=== PATIENT | female | born 1980 | race Asian ===

== ENCOUNTER 2018-04-29 16:22 | Outpatient (CLI) | payer BC ==
[2018-04-29 17:33] LABS: BHCG - Serum Negative (NEGATIVE); Pregs Control Background? CLEAR/WHITE (CLR/WHITE); Pregs Control Bar Appear? YES (CONTROL BAR)
== END 2018-04-29 16:23 | disposition home or self-care (01) ==
LOC: LABBT 16:22
PROVIDERS: ATTEND Obstetrics & Gynecology
DX: Z01.812 Encounter for preprocedural laboratory examination (principal); N92.0 Excessive and frequent menstruation with regular cycle; N94.6 Dysmenorrhea, unspecified
CPT/HCPCS: 84703

== ENCOUNTER 2018-05-08 05:38 | Day surgery (SDC) | payer BC ==
[2018-04-29 16:42] VITALS: BMI 24.5
[2018-05-08] MEDS ORDERED: Fentanyl 100 MCG/2 ML VIAL ONE (06:22)
[2018-05-08] MEDS ORDERED: Midazolam HCl 2 mg/2 ml Vial ONE (06:44)
[2018-05-08] MEDS ORDERED: Calcium Chloride 1 GM/10 ML Abboject SYRINGE ONE (06:54)
[2018-05-08] MEDS ORDERED: Bupivacaine HCl 0.5%/Epinephrine 1:200,000/PF 30 ml Vial ONE (06:54)
[2018-05-08] MEDS ORDERED: Thrombin 5000 UNITS/5 ML VIAL ONE (06:54)
[2018-05-08] MEDS ORDERED: Promethazine HCl 25 MG/ML VIAL ONE (10:12)
[2018-05-08] MEDS ORDERED: Ondansetron ODT 4 MG TAB ONE (11:39)
--- NOTE | 2018-05-08 12:56 | OP ---
DATE OF PROCEDURE: 05/08/2018 SURGEON: Rubi Yang M.D. CONDITIONER TUMBLER OPERATOR: None. PREOPERATIVE DIAGNOSES: 1. A 37-year-old female with a painful and heavy bleeding. 2. Desires . POSTOPERATIVE DIAGNOSES: 1. A 37-year-old female with a painful and heavy bleeding. 2. Desires . 3. 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 4. Bilateral ovaries and tubes present. PROCEDURES PERFORMED: 1. Diagnostic hysteroscopy with shaving of endometrium with a True-Lana device. 2. Diagnostic laparoscopy with fulguration of endometriosis. 3. Chromotubation. 4. Removal of a left paratubal cyst. 5. Lysis of adhesions. 6. Enterolysis. 7. Plasmax infusion. SPECIMENS REMOVED: None. ESTIMATED BLOOD LOSS: Less than 5 mL. CLINICAL HISTORY: This patient is a 37-year-old female G0 who presented to my office with a co mplaint of irregular periods. The patient also had painful bleeding. She was concerned due to sever al years of trying for without conception even after using Clomid. The patient had evaluat ion by physical exam and ultrasonography and it was noted that she had a normal size uterus without a ny evidence of pathology and bilateral ovaries were seen. However, given the persistence of her irre gular menses and pelvic pain, the decision was made for surgical exploration. The risks, benefits, p ossible complications and alternatives were discussed and the patient was prepped for surgery. DETAILS OF PROCEDURE: The patient was taken to the operating room where general anesthesia was obtai ginny. She was laid in a supine position and her legs were placed in the Yellofin stirrups. She was p repped and draped in the usual sterile fashion. A lateral retractor was placed into the vagina and t he cervix was seen and the anterior lip of the cervix was grasped with a single tooth tenaculum. A F oley catheter was placed to drain clear urine. The cervix was then dilated gradually with the Hegar dilators to accommodate the slim hysteroscope. The hysteroscope was then assembled and after priming with sterile fluids, this was placed into the uterus and the uterus was distended with flow at the s terile fluid. The ostia on the patient's right side were the only visualized ostia. The left side w as not visible. There was a significant amount of debris in the uterus and the True-Lana device was used to shave off the excess material inside the uterus. Once this was completed, the device was rem arsh from the uterus and the uterus was allowed to drain that was noted to be hemostatic. The VCare device was then placed for manipulation and future plans for chromotubation. Attention was then turn ed to the abdomen. The legs were placed in the downward position and the abdomen was tented and an i ncision was made in the lower umbilical border and the direct view 5 mm trocar was placed into the ab domen. Once this port site was placed, the abdomen was insufflated with CO2 gas to maintain pressure s less than 15 mmHg. A survey of the pelvis noted no trauma to the underlying structures with visual ization of the pelvic structures. After the patient was placed in steep Trendelenburg noted that she had a unicornuate uterus with attached tube on the left side. The second trocar was placed 5 mm abo ve the mons pubis with a scalpel and then under direct visualization. A blunt probe was placed throu gh this trocar site for movement of the bowel to explore whether or not the patient had a right ovary and tube. Right ovary and tube were seen, but it was attached to the serosal base of the uterus wit hout evidence of connection or patency. The bowel on the patient's right side was also noted to encr oach pretty high up on the lateral side wall. This was released with just cold scissors with excelle nt hemostasis. Once the bowel was removed, we were better able to visualize the ovary and tube on th e right side. There was a focal point of endometriosis noted on the uterosacral on the patient's lef t side in two different places. The energy was connected to the scissors and these 2 sites were fulg urated under direct visualization. Once the sites were completed, the chromotubation was performed w ith initially no flow through to the patient's left side, but thereafter flow was achieved with signi ficant pressure only spilling from the left side. The right side did not fill at all. Once the music library assistant motubation was completed, the abdomen was copiously irrigated. The Plasmax was placed over the area where the bowel was taken down and over the tubes. In this process of starting the Plasmax it was no ariella that there was a paratubal cyst on the left side. This was liberated and desiccated. The remain ing Plasmax was then placed over the endometriotic lesions as well as the patent tube on the left kota e. The patient tolerated this procedure well and once the Plasmax was completed she was deflated of the CO2 gas. The port sites were removed under direct visualization and the incisions were closed wi th a 4-0 Monocryl at the skin. These incisions were reinforced closure with the Steri-Strip and a Ba nd-Aid was placed over the lower incision as well as a 2 x 2 and a Tegaderm in umbilicus with excelle nt hemostasis. The attention was then turned back to the introitus where the legs were elevated. Th e VCare device was removed and the patient was cleansed of all debris. She was noted to be hemostati c, where the tenaculum and manipulation devices were placed. The patient then was recovered and ball sferred to a gurney. All needle, sponge, lap, and instrument counts were correct x2 at the end of th e procedure and the patient was turned to the post-surgical unit in satisfactory condition. There we re no other issues surrounding this surgery.
[2018-05-08] MEDS ORDERED: ePHEDrine/0.9% NaCl/PF SYRINGE 50 mg/10 ml ONE (13:10)
[2018-05-08] MEDS ORDERED: Ketorolac Tromethamine 30 MG/ML VIAL ONE (13:10)
[2018-05-08] MEDS ORDERED: Glycopyrrolate 0.2 MG/ML 5 ML SYRINGE ONE (13:10)
[2018-05-08] MEDS ORDERED: Lidocaine 1% PF 5 ML VIAL ONE (13:10)
[2018-05-08] MEDS ORDERED: Dexamethasone 20 MG/5 ML VIAL ONE (13:10)
[2018-05-08] MEDS ORDERED: PHENYLEPHRINE-NS 100 MCG/ML 10 ML SYRINGE ONE (13:10)
[2018-05-08] MEDS ORDERED: Ondansetron PF 4 MG/2 ML Vial ONE (13:10)
[2018-05-08] MEDS ORDERED: PROPOFOL 200 MG/20 ML VIAL ONE (13:10)
== END 2018-05-08 11:40 | disposition home or self-care (01) ==
LOC: SDC 05:38
PROVIDERS: ATTEND Obstetrics & Gynecology
PROC: 0UJD8ZZ Inspection of Uterus and Cervix, Via Natural or Artificial Opening Endoscopic (ICD-10-PCS; principal; 2018-05-08)
PROC: 3E1P38Z Irrigation of Female Reproductive using Irrigating Substance, Percutaneous Approach (ICD-10-PCS; principal; 2018-05-08)
PROC: 0U5F4ZZ Destruction of Cul-de-sac, Percutaneous Endoscopic Approach (ICD-10-PCS; principal; 2018-05-08)
PROC: 0UDB7ZX Extraction of Endometrium, Via Natural or Artificial Opening, Diagnostic (ICD-10-PCS; 2018-05-08)
PROC: 0UJD8ZZ Inspection of Uterus and Cervix, Via Natural or Artificial Opening Endoscopic (ICD-10-PCS; 2018-05-08)
DX: N80.8 Other endometriosis (principal); N83.8 Other noninflammatory disorders of ovary, fallopian tube and broad ligament; Q51.4 Unicornate uterus; E28.2 Polycystic ovarian syndrome; N92.1 Excessive and frequent menstruation with irregular cycle; Z79.84 Long term (current) use of oral hypoglycemic drugs; Z79.899 Other long term (current) drug therapy; Z88.8 Allergy status to other drugs, medicaments and biological substances
CPT/HCPCS: 88305; 96374; J0131; J0670; J2250; J2550; J3010; Q0162; Q9968